=== PATIENT | male | born 1960 | race Caucasian/White ===

== ENCOUNTER 2018-08-24 18:33 | Inpatient (IN) ==
[2018-08-24] MEDS ORDERED: HYDROmorphone PF Inj 2 MG/ML Vial IV.PUSH ONE ×2 (18:46→20:24)
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
[2018-08-24 20:37] LABS: Baso % (Auto) 0.3 % (0.0-2.0); Eos # (Auto) 0.1 th/mm3 (0.0-0.4); Eos % (Auto) 0.6 % (0.0-4.0); Hematocrit 42.6 % (39.0-51.0); Hemoglobin 14.6 gm/dL (13.0-17.0); Lymph # (Auto) 1.5 th/mm3 (1.0-4.8); Lymph % (Auto) 17.4 % (9.0-44.0); Mean Corpuscular HGB Conc 34.3 % (32.0-36.0); Mean Corpuscular Hemoglobin 28.9 pg (27.0-34.0); Mean Corpuscular Volume 84.3 fL (80.0-100.0); Mono # (Auto) 0.9 th/mm3 (0.0-0.9); Mono % (Auto) 10.6 % (0.0-8.0); Neut # (Auto) 6.2 th/mm3 (1.8-7.7); Neut % (Auto) 71.1 % (16.0-70.0); Platelet Count 166 th/mm3 (150-450); Red Blood Count 5.06 mil/mm3 (4.50-5.90); Red Cell Distribution Width 14.2 % (11.6-17.2); White Blood Count 8.7 th/mm3 (4.0-11.0)
[2018-08-24 20:53] LABS: Prothrombin Time 10.4 sec (9.8-11.6)
[2018-08-24 20:54] LABS: Activated Partial Thrombo Time 20.5 sec (23.4-31.7)
--- NOTE | 2018-08-24 21:17 | XR ---
EXAM DATE: 08/24/2018 9:10 PM EST AGE/SEX: 58 years / Male INDICATIONS: Post reduction left forearm CLINICAL DATA: This is the patient's subsequent encounter. Patient reports that signs and symptoms h ave been present for 1 day and indicates a pain score of 7/10. MEDICAL/SURGICAL HISTORY: None. None. COMPARISON: [facility] [place], FOREARM LEFT 2V, 08/24/2018. . FINDINGS: 3 views performed in fiberglass splint. In frontal projection, the angulation of the ulnar and radial fractures is similar. In lateral projection, there is catholic of the alignment. CONCLUSION: Partial decrease in angulation of the radial and ulnar fractures in splint. Electronically signed by: Chuck Ye MD 08/24/2018 9:15 PM EST
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
[2018-08-24] MEDS ORDERED: Morphine Inj 4 MG/ML Vial IV.PUSH ONE (21:41)
[2018-08-24] MEDS ORDERED: Metoprolol Tartrate 25 MG Tablet PO ONE (23:19)
[2018-08-24] MEDS ORDERED: Chlorhexidine Gluconate 2% 1 Pack (2 Cloths) TOPICAL ONE (23:19)
[2018-08-24] MEDS ORDERED: Sodium Chlor 0.9% Inj 500 ML IV.SIG SCH (23:45)
[2018-08-25 00:30] LABS: Calcium 8.2 mg/dL (8.5-10.1); Carbon Dioxide 29.6 meq/L (21.0-32.0); Potassium 3.7 meq/L (3.5-5.1)
[2018-08-25] MEDS ORDERED: Sod Chloride 0.9% Inj 1,000 ML IV.SIG SCH (01:30)
[2018-08-25] MEDS: Morphine Inj 4 MG/ML Vial IV.PUSH PRN ×5 (01:33→20:06)
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
[2018-08-25] MEDS ORDERED: Pantoprazole Inj 40 MG Vial IV.PUSH SCH (08:00)
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
[2018-08-25] MEDS ORDERED: Docusate Sodium 100 MG Capsule PO SCH (09:00)
[2018-08-25] MEDS ORDERED: ceFAZolin 1 GM Premix Inj 2 GM/100 ML FROZ.PIGGY IV.SIG ONE (11:58)
[2018-08-25] MEDS ORDERED: Zolpidem Tartrate 5 MG Tablet PO PRN (14:26)
[2018-08-25] MEDS ORDERED: Promethazine 25 MG Supp RECTAL PRN (14:26)
[2018-08-25] MEDS ORDERED: Bisacodyl 10 MG Supp RECTAL PRN (14:26)
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
--- NOTE | 2018-08-25 14:35 | XR ---
EXAM DATE: 08/25/2018 2:29 PM EST AGE/SEX: 58 years / Male INDICATIONS: Left forearm ORIF. CLINICAL DATA: This is the patient's initial encounter. Patient reports that signs and symptoms have been present for 1 day and indicates a pain score of Nonresponsive. MEDICAL/SURGICAL HISTORY: Non-responsive. Non-responsive. COMPARISON: No prior exams available for comparison. FINDINGS: Hardware is noted within the radius and ulna status post ORIF. The bones are well aligned. CONCLUSION: Status post ORIF of radius and ulna with good alignment of the bones are noted. Electronically signed by: Edu Augustin MD 08/25/2018 2:34 PM EST
[2018-08-25] MEDS ORDERED: Post-op Orders (for Pharmacy) OTHER STA (14:45)
[2018-08-25] MEDS ORDERED: *morphine SULFATE 4 MG/ML PERIprocedure ONLY ONE ×3 (14:48→15:13)
[2018-08-25] MEDS ORDERED: *Meperidine Inj 25 MG/ML Vial PERIprocedural Use ONLY ONE (14:48)
[2018-08-25] MEDS ORDERED: fentaNYL Citrate Inj 100 MCG/2 ML Ampul ONE (15:06)
--- NOTE | 2018-08-25 15:32 | ECG ---
Date Performed: 08/25/2018 Time Performed: 03:17:02 PTAGE: 58 years EKG: Sinus rhythm Incomplete RBBB Borderline ECG NO PREVIOUS TRACING DOCTOR: Alejandro Jaime Interpretating Date/Time 08/25/2018 15:31:22
[2018-08-25] MEDS ORDERED: *HYDROmorphone PF Inj 1 MG/ML Ampul PERIprocedural Use ONLY ONE ×2 (15:41→16:05)
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
[2018-08-25] MEDS: Senna/Docusate Sodium 8.6/50 MG Tablet PO SCH (20:01)
[2018-08-25] MEDS: ceFAZolin 2 GM Premix Inj 2 GM/50 ML PIGGYBACK IV.SIG SCH (20:05)
[2018-08-26] MEDS: Morphine Inj 4 MG/ML Vial IV.PUSH PRN ×4 (02:57→21:19)
[2018-08-26] MEDS: ceFAZolin 2 GM Premix Inj 2 GM/50 ML PIGGYBACK IV.SIG SCH ×2 (03:41→14:04)
[2018-08-26 04:23] LABS: Baso % (Auto) 0.1 % (0.0-2.0); Eos % (Auto) 0.1 % (0.0-4.0); Hematocrit 38.3 % (39.0-51.0); Hemoglobin 13.1 gm/dL (13.0-17.0); Lymph % (Auto) 12.6 % (9.0-44.0); Mean Corpuscular HGB Conc 34.2 % (32.0-36.0); Mean Corpuscular Hemoglobin 28.9 pg (27.0-34.0); Mean Corpuscular Volume 84.5 fL (80.0-100.0); Mean Platelet Volume 8.3 fL (7.0-11.0); Mono # (Auto) 0.8 th/mm3 (0.0-0.9); Mono % (Auto) 9.8 % (0.0-8.0); Neut # (Auto) 6.4 th/mm3 (1.8-7.7); Neut % (Auto) 77.4 % (16.0-70.0); Platelet Count 139 th/mm3 (150-450); Red Blood Count 4.54 mil/mm3 (4.50-5.90); Red Cell Distribution Width 13.9 % (11.6-17.2); White Blood Count 8.3 th/mm3 (4.0-11.0)
[2018-08-26 04:42] LABS: Calcium 8.7 mg/dL (8.5-10.1); Carbon Dioxide 30.6 meq/L (21.0-32.0); Potassium 3.9 meq/L (3.5-5.1)
[2018-08-26] MEDS: Senna/Docusate Sodium 8.6/50 MG Tablet PO SCH ×3 (09:16→21:18)
[2018-08-26] MEDS: Folic Acid 1 MG Tablet PO SCH (09:17)
[2018-08-26] MEDS: Multivitamin/Minerals Therapeutic Tablet PO SCH (09:17)
--- NOTE | 2018-08-26 09:34 | P.PNOP ---
Subjective Interval history: pain better today. Physical Exam Vital signs: Vital Signs 08/25/18 14:43 08/25/18 15:00 08/25/18 15:15 Temperature 98.7 F Pulse Rate 73 71 70 Respiratory Rate 14 15 16 Blood Pressure 135/68 126/69 128/69 Pulse Oximetry 95 94 L 95 08/25/18 15:30 08/25/18 15:35 08/25/18 15:45 Temperature 98.4 F Pulse Rate 72 70 Respiratory Rate 15 15 15 Blood Pressure 144/70 H 132/64 Pulse Oximetry 94 L 95 08/25/18 16:00 08/25/18 16:03 08/25/18 17:02 Temperature 97.6 F Pulse Rate 68 65 Respiratory Rate 14 14 18 Blood Pressure 120/62 123/63 Pulse Oximetry 95 94 L 08/25/18 20:00 08/26/18 00:00 08/26/18 03:40 Temperature 98.3 F 98.4 F Pulse Rate 80 70 Respiratory Rate 17 18 20 Blood Pressure 115/80 122/69 Pulse Oximetry 97 98 08/26/18 04:00 08/26/18 08:00 Temperature 98.8 F 98.1 F Pulse Rate 70 69 Respiratory Rate 17 19 Blood Pressure 123/64 138/77 Pulse Oximetry 96 94 L Intake & Output 08/25/18 08/26/18 08/26/18 18:59 06:59 18:59 Intake Total 600 / 600 100 / 100 Output Total 600 / 600 2100 / 2100 Balance 0 / 0 -1999 / -1999 Weight 102.9 kg Intake: IV 100 / 100 Ancef 2 GM Premix Inj 2 gm In 100 / 100 50 ml @ 100 mls/hr IV.SIG Q8H [facility] Rx#:[id number] Anesthesia Amount 600 / 600 Output: Urine 400 / 400 2100 / 2100 Estimated Blood Loss 200 / 200 Other: # Voids 5 Date of Last Bowel Movement 08/24/18 08/24/18 08/24/18 Narrative: in bed, nad dressing/splint intact nvi cap refill sensation intact mild swelling hand Results - Labs CBC & Chem 7: 08/26/18 03:50 08/26/18 03:50 Laboratory Results - last 24 hr 08/26/18 08/26/18 03:50 03:50 WBC 8.3 RBC 4.54 Hgb 13.1 Hct 38.3 L MCV 84.5 MCH 28.9 MCHC 34.2 RDW 13.9 Plt Count 139 L MPV 8.3 Neut % (Auto) 77.4 H Lymph % (Auto) 12.6 [place] % (Auto) 9.8 H Eos % (Auto) 0.1 Baso % (Auto) 0.1 Neut # (Auto) 6.4 Lymph # (Auto) 1.0 [place] # (Auto) 0.8 Eos # (Auto) 0.0 Baso # (Auto) 0.0 WBC Differential . Differential Comment Auto diff final Sodium 142 Potassium 3.9 Chloride 105 Carbon Dioxide 30.6 Anion Gap 6 BUN 12 Creatinine 1.02 Estimated GFR 76 L Random Glucose 145 H Calcium 8.7 - Imaging Impressions Forearm X-Ray 08/25/ 00:00 CONCLUSION: Status post ORIF of radius and ulna with good alignment of the bones are noted. Assessment and Plan - Ortho Post Op Day # 1 - Assessment and Plan s/p ORIF L radius/ulna shaft fractures POD#1 NWB maintain splint asa 81 elevation/ice d/c planning - ortho stable/cleared f/up dr. hanson 2 weeks
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
--- NOTE | 2018-08-26 15:18 | XR ---
EXAM DATE: 08/26/2018 3:11 PM EST AGE/SEX: 58 years / Male INDICATIONS: Right wrist pain. [facility] CLINICAL DATA: This is the patient's initial encounter. Patient reports that signs and symptoms have been present for 3 days and indicates a pain score of 4/10. MEDICAL/SURGICAL HISTORY: None. None. COMPARISON: No prior exams available for comparison. FINDINGS: Bony structures are intact and in normal alignment. Joints are intact without dislocation or signifi cant arthropathy. Osseous density is normal. Soft tissues are unremarkable. No radiopaque foreign bodies seen. CONCLUSION: No evidence of recent bony injury. Electronically signed by: Johnson Jamil MD 08/26/2018 3:17 PM EST
--- NOTE | 2018-08-26 15:20 | XR ---
EXAM DATE: 08/26/2018 3:09 PM EST AGE/SEX: 58 years / Male INDICATIONS: Fracture CLINICAL DATA: This is the patient's subsequent encounter. Patient reports that signs and symptoms h ave been present for 2 days and indicates a pain score of 6/10. MEDICAL/SURGICAL HISTORY: None. None. [place] [facility] [place] [facility]. . FINDINGS: Superior endplate deformity of L1 with mild depression characteristic of a fracture is again noted. T here is been no further loss of height compared to recent study. Degenerative disc disease with spondylosis is again noted at L2-3 and L3-4. Posterior elements appear intact. CONCLUSION: Mild superior endplate depression of L1 characteristic of a compression fracture. Degenerative disc disease at L2-3 and L3-4. Electronically signed by: Johnson Jamil MD 08/26/2018 3:19 PM EST
[2018-08-27 05:22] LABS: Hematocrit 38.5 % (39.0-51.0); Hemoglobin 13.1 gm/dL (13.0-17.0)
[2018-08-27] MEDS: Folic Acid 1 MG Tablet PO SCH (08:43)
[2018-08-27] MEDS: Senna/Docusate Sodium 8.6/50 MG Tablet PO SCH (08:43)
[2018-08-27] MEDS: Multivitamin/Minerals Therapeutic Tablet PO SCH (08:43)
--- NOTE | 2018-08-27 08:49 | P.PNOP ---
Subjective Interval history: pain tolerable Physical Exam Vital signs: Vital Signs 08/26/18 12:10 08/26/18 16:00 08/26/18 20:00 Temperature 98.3 F 98.1 F 99.2 F Pulse Rate 81 78 84 Respiratory Rate Blood Pressure 148/87 H 155/75 H 145/80 H Pulse Oximetry 94 L 96 93 L 08/27/18 00:00 Temperature 98.5 F Pulse Rate 75 Respiratory Rate 16 Blood Pressure 137/78 Pulse Oximetry 94 L Intake & Output 08/26/18 08/27/18 08/27/18 18:59 06:59 18:59 Intake Total 1850 / 1850 2099 Output Total 2099 Balance -250 / -250 2099 Intake: IV 50 / 50 2099 / 2100 LR 1000 mL Inj 1,000 ML @ 100 1000 / 1000 mls/hr IV.CONT .Q10H JASON Rx#: [id number] Ancef 2 GM Premix Inj 2 gm In 50 / 50 50 ml @ 100 mls/hr IV.SIG Q8H JASON Rx#:[id number] Oral 1800 / 1800 Output: Urine 2099 Other: Date of Last Bowel Movement 08/24/18 08/26/18 Narrative: sitting on bedside, nad splint LUE intact swelling in fingers, nvi sensation intact cap refill Results - Labs CBC & Chem 7: 08/27/18 04:36 08/26/18 03:50 Laboratory Results - last 24 hr 08/27/18 04:36 Hgb 13.1 Hct 38.5 L - Imaging Impressions Lumbar Spine X-Ray 08/26/18 00:00 CONCLUSION: Mild superior endplate depression of L1 characteristic of a compression fracture. Degenerative disc disease at L2-3 and L3-4. Wrist X-Ray 08/26/18 00:00 CONCLUSION: No evidence of recent bony injury. Assessment and Plan - Ortho Post Op Day # 2 - Assessment and Plan s/p ORIF L radius/ulna shaft fractures POD#1 NWB maintain splint asa 81 elevation/ice d/c planning - ortho stable/cleared f/up dr. hanson 2 weeks
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
== END 2018-08-27 15:15 | disposition home or self-care (01) ==
LOC: EDSEX → NEPE 18:33 → NEDA 19:47 → N06 22:05 → NEDA 22:07
PROVIDERS: ADMIT Surgery; ATTEND Surgery